=== PATIENT | male | born 1980 | race Caucasian/White ===

== ENCOUNTER 2018-04-12 17:59 | Emergency (ER) | payer MEDICARE, OTHER ==
[2018-04-12] MEDS: diphenhydrAMINE 50 MG/ML VIAL IVP (19:24)
[2018-04-12] MEDS: FAMOTIDINE 20 MG TABLET. PO (19:24)
[2018-04-12] MEDS: methylPREDNISolone SOD SUCC PF 125 MG/2 ML VIAL. IV (19:25)
[2018-04-13 10:22] LABS: NEGATIVE OBC STREP NEG; POSITIVE OBC STREP POS
== END 2018-04-12 20:41 | disposition home or self-care (01) ==
LOC: ER 20:41
DX: L50.9 Urticaria, unspecified (principal)
CPT/HCPCS: 87070; 87880; 96374; 96375; 99284-25; J1200; J2930